=== PATIENT | male | born 1985 | race Caucasian/White ===

== ENCOUNTER 2019-03-29 20:47 | Emergency (ER) | payer BC ==
[~2019-03-29] VITALS: Ht 172.7 cm; Wt 79.4 kg
--- NOTE | 2019-03-29 21:20 | NUR ---
Pt being wanded by security.
--- NOTE | 2019-03-29 21:50 | NUR ---
Dr. Juarez at bedside for MSE.
[2019-03-29] MEDS ORDERED: [UNRECOGNIZED DRUG - REMARK] (21:52)
--- NOTE | 2019-03-29 22:25 | NUR ---
Patient eloped from facility. ER physician notified.
== END 2019-03-29 22:27 | disposition left against medical advice (07) ==
LOC: ER 20:49
DX: F15.10 Other stimulant abuse, uncomplicated (principal); F10.10 Alcohol abuse, uncomplicated; Z79.899 Other long term (current) drug therapy; Y90.9 Presence of alcohol in blood, level not specified
CPT/HCPCS: A4663